=== PATIENT | female | born 2000 | race Caucasian/White ===

== ENCOUNTER 2022-04-03 12:06 | Emergency (ER) | payer MEDICAID ==
[2022-04-03] MEDS ORDERED: Cephalexin 500 MG Cap PO ONE (12:07)
[2022-04-03 13:40] LABS: ANION GAP 12.7 mEq/L (7-13)
[2022-04-03] MEDS ORDERED: Cephalexin 500 MG Cap ONE (14:18)
== END 2022-04-03 14:17 | disposition home or self-care (01) ==
LOC: DL.ED 12:06
DX: O23.41 Unspecified infection of urinary tract in pregnancy, first trimester (principal); N39.0 Urinary tract infection, site not specified; O99.331 Smoking (tobacco) complicating pregnancy, first trimester; F17.210 Nicotine dependence, cigarettes, uncomplicated; Z3A.13 13 weeks gestation of pregnancy
CPT/HCPCS: 36415; 76815; 80053; 81001; 81025; 84702; 85025; 87086; 99284-25; A9270-GY